=== PATIENT | female | born 1990 | race Caucasian/White ===

== ENCOUNTER 2017-12-07 11:10 | Emergency (ER) | payer OTHER, MEDICAID ==
[2017-12-07] MEDS ORDERED: ONDANSETRON DISINTEGRATING 4 MG TAB PO ONE (11:35)
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
[2017-12-07 13:19] VITALS: BP 104/72
== END 2017-12-07 13:34 | disposition home or self-care (01) ==
DX: R51 Headache (principal); F07.81 Postconcussional syndrome; Z87.891 Personal history of nicotine dependence